=== PATIENT | female | born 1960 | race Caucasian/White ===

== ENCOUNTER → 2016-11-05 | Outpatient (CLI) | payer OTHER ==
[~2016-11-05] MED LIST: ADVAIR DISKUS 51 DSK; ALBUTEROL0.09 MG/A2; ATIVAN0.5 MG; BYETTA10 MCG/0.0; COREG25 MG; HYDROCHLOROTHIA50 MG; VITAMIN C PUR1000 M1; VITAMIN D1000 IU
== END | disposition home or self-care (01) ==
LOC: CT 08:29
DX: M54.2 Cervicalgia (principal)

== ENCOUNTER 2021-11-02 06:51 | Emergency (ER) | payer OTHER ==
[~2021-11-02] VITALS: Ht 167.6 cm; Wt 83.9 kg
[~2021-11-02 06:51] MED LIST changes: +ATIVAN1 MG PO
== END 2021-11-02 09:38 | disposition home or self-care (01) ==
LOC: ED 06:51
DX: S01.01XA Laceration without foreign body of scalp, initial encounter (principal); Z79.899 Other long term (current) drug therapy; W18.39XA Other fall on same level, initial encounter; Y93.89 Activity, other specified; Y92.89 Other specified places as the place of occurrence of the external cause; Y99.8 Other external cause status

== ENCOUNTER 2025-05-20 20:13 | Emergency (ER) | payer OTHER ==
[~2025-05-20] VITALS: Ht 165.1 cm; Wt 78.0 kg
[2025-05-20] MEDS ORDERED: Ondansetron Hydrochloride 4 MG TAB PO ONE (22:15)
[2025-05-20 22:26] LABS: BASO # 0.0 10*3/uL (0.0-0.1); BASO % 0.2 % (0.0-1.0); EOS # 0.4 10*3/uL (0.0-0.4); EOS % 2.6 % (1.0-4.0); MEAN CELL VOLUME 84.4 fl (81.0-99.0); MEAN CORPUSCULAR HGB 28.0 pg (27.0-31.0); MEAN PLATELET VOLUME 9.8 fl (9.6-12.3); MONO # 0.8 10*3/uL (0.1-1.0); MONO % 5.7 % (3.0-9.0); NEUT # 12.5 10*3/uL (2.3-7.9); NEUT % 83.8 % (47.0-73.0); NUCLEATED RED BLOOD CELL 0.0 % (0.0-0.0); NUCLEATED RED BLOOD CELL 0.0 10*3/uL (0.0-0.0); PLATELET COUNT AUTOMATED 290 10*3/uL (130-400); RED CELL DISTRI WIDTH 12.6 % (0-14.5)
[2025-05-20 22:46] LABS: BUN 13 mg/dl (9-23)
[2025-05-20] MEDS ORDERED: FAMOTIDINE 20 MG TAB PO ONE (23:15)
[2025-05-20 23:21] LABS: BILIRUBIN Negative (Negative); BLOOD Negative (Negative); CLARITY Clear (Clear); COLOR Yellow (Yellow); KETONE Negative (Negative); LEUKO ESTERASE Negative (Negative); NITRITE Negative (Negative); PH 6.5 (4.5-8.0); SPECIFIC GRAVITY <= 1.005 (1.001-1.030); UROBILINOGEN 0.2 E.U./dl (0.0-1.0)
[2025-05-20 23:28] LABS: URINE AMPHETAMINES Negative (1000ng/ml); URINE BARBITURATES Negative (200ng/ml); URINE BENZODIAZEPINES Negative (200ng/ml); URINE CANNABINOIDS (THC) Negative (50ng/ml); URINE COCAINE Negative (300ng/ml); URINE METHADONE Negative (300ng/ml); URINE OPIATES Negative (300ng/ml); URINE PHENCYCLIDINE Negative (25ng/ml)
[2025-05-21 00:05] LABS: WBC 0-2 wbc/hpf (0-5)
[2025-05-21] MEDS ORDERED: Ondansetron4 MG PO (00:50)
== END 2025-05-21 00:48 | disposition home or self-care (01) ==
LOC: ED 20:13
PROVIDERS: Student in an Organized Health Care Education/Training Program
DX: I10 Essential (primary) hypertension (principal); R11.10 Vomiting, unspecified; E11.9 Type 2 diabetes mellitus without complications; J45.909 Unspecified asthma, uncomplicated; Z88.5 Allergy status to narcotic agent; Z79.899 Other long term (current) drug therapy